=== PATIENT | female | born 1940 | race Two or more races ===

== ENCOUNTER 2018-05-07 08:04 | Outpatient (CLI) | payer OTHER | END 2018-05-07 08:06 | disposition home or self-care (01) | LOC: SONOGRAMA 08:04 | DX: E04.1 Nontoxic single thyroid nodule (principal) ==

== ENCOUNTER 2024-04-29 12:23 | Emergency (ER) | payer OTHER ==
[~2024-04-29] VITALS: Ht 152.4 cm; Wt 56.7 kg
[2024-04-29] MEDS ORDERED: ATENOLOL25 MG PO (15:30)
[2024-04-29] MEDS ORDERED: ORPHENADRINE CITRATE 30 MG/ML AMPUL IM ONE (15:45)
[2024-04-29] MEDS ORDERED: ACETAMINOPHEN 500 MG GEL..CAP PO ONE (15:45)
[2024-04-29] MEDS ORDERED: ORPHENADRINE CITRATE 30 MG/ML AMPUL ONE (16:18)
[2024-04-29] MEDS ORDERED: ENOXAPARIN SODIUM 60 MG/0.6 ML SYRINGE SUBCUTANEO ONE ×2 (19:42→19:45)
[2024-04-29] MEDS ORDERED: FAMOtidine 10 MG/ML (4ML VIAL) IV ONE (23:45)
[2024-04-29] MEDS ORDERED: DICYCLOMINE HCL 20 MG TABLET PO ONE (23:45)
[2024-04-30] MEDS ORDERED: FAMOTIDINE/PF 20 MG/2 ML VIAL ONE (00:50)
[2024-04-30] MEDS ORDERED: DICYCLOMINE HCL 10 MG CAPSULE PO ONE (00:50)
[2024-04-30 07:47] VITALS: BP 149/74; O2SAT 98
== END 2024-04-30 10:52 | disposition home or self-care (01) ==
LOC: ER 12:25
DX: M79.604 Pain in right leg (principal); I10 Essential (primary) hypertension; E11.9 Type 2 diabetes mellitus without complications
CPT/HCPCS: 36415; 73560; 93971; 96365; 96372; 99284; J2360; J3490